=== PATIENT | male | born 1960 | race Caucasian/White ===

== ENCOUNTER 2022-09-18 11:57 | Outpatient (CLI) | payer MEDICARE, SELFPAY ==
[2022-09-21 22:28] LABS: Albumin* 4.8 g/dL (3.3-5.0); Chloride* 104 mmol/L (96-114); Sodium* 141 mmol/L (135-149)
[2022-09-21 22:29] LABS: Potassium* 4.5 mmol/L (3.6-5.1)
[2022-09-21 22:30] LABS: Cholesterol* 209 mg/dL (90-199)
[2022-09-21 22:31] LABS: Alanine Aminotransferase* 24 U/L (4-50); Alkaline Phosphatase* 54 U/L (40-150); Aspartate Amino Transferase* 25 U/L (12-35); Bilirubin Total* 0.9 mg/dL (0.1-1.5); Blood Urea Nitrogen* 12 mg/dL (7-30); Carbon Dioxide* 29 mmol/L (20-32); Creatinine* 0.8 mg/dL (0.5-1.5); Estimated Glomerular Filt Rate 101 ml/min; Glucose* 99 mg/dL (60-115); Total Protein* 7.2 g/dL (6.0-8.3); Triglycerides* 122 mg/dL (40-149)
[2022-09-21 22:32] LABS: Calcium* 9.5 mg/dL (8.4-10.6); HDL Cholesterol* 54 mg/dL (>=40); LDL Cholesterol Calculated 130 mg/dL (<100)
[2022-09-21 23:01] LABS: PSA Screen* 4.45 ng/mL (0.10-4.00)
== END 2022-09-18 11:58 | disposition home or self-care (01) ==
PROVIDERS: PCP Physician Assistant Medical; Visit Provider Physician Assistant Medical
DX: Z00.00 Encounter for general adult medical examination without abnormal findings; R79.89 Other specified abnormal findings of blood chemistry; Z12.5 Encounter for screening for malignant neoplasm of prostate; Z13.6 Encounter for screening for cardiovascular disorders
CPT/HCPCS: 80053; 80061; 84153

== ENCOUNTER 2022-10-02 06:21 | Outpatient (CLI) | payer OTHER, MEDICARE, SELFPAY ==
--- NOTE | 2022-10-02 08:08 | W.ANESCHARGE ---
Anesthesia Charges Start Date/Time Anesthesia Start Date: 10/02/22 Anesthesia Start Time: 07:11 Stop Date/Time Anesthesia Stop Date: 10/02/22 Anesthesia Stop Time: 08:00 Summary Emergency: No
== END 2022-10-02 06:22 | disposition home or self-care (01) ==
PROVIDERS: PCP Physician Assistant Medical; Visit Provider Surgery
DX: Z12.11 Encounter for screening for malignant neoplasm of colon (principal); K63.5 Polyp of colon; K62.1 Rectal polyp; K57.30 Diverticulosis of large intestine without perforation or abscess without bleeding; Z86.010 Personal history of colon polyps
CPT/HCPCS: 00811; 45385; 88305; J2704

== ENCOUNTER 2024-04-28 13:42 | Outpatient (CLI) | payer OTHER, SELFPAY | END 2024-04-28 13:43 | disposition home or self-care (01) | LOC: LKVREF 13:43 | PROVIDERS: PCP Physician Assistant Medical; Visit Provider Physician Assistant Medical | DX: Z00.00 Encounter for general adult medical examination without abnormal findings (principal); F11.90 Opioid use, unspecified, uncomplicated; M79.7 Fibromyalgia; F32.A Depression, unspecified; Z13.6 Encounter for screening for cardiovascular disorders; Z12.5 Encounter for screening for malignant neoplasm of prostate; Z13.1 Encounter for screening for diabetes mellitus; Z13.0 Encounter for screening for diseases of the blood and blood-forming organs and certain disorders involving the immune mechanism | CPT/HCPCS: 80053; 80061; 80306; 84443; G0103 ==

== ENCOUNTER 2024-06-11 14:26 | Outpatient (CLI) | payer OTHER, SELFPAY ==
--- NOTE | 2024-06-11 14:30 | CRLHL7_ITS ---
For Patients: As a result of the 21st Century Cures Act, medical imaging exams and procedure reports are released immediately into your electronic medical record. You may view this report before your referring provider. If you have questions, please contact your health care provider. Indication: Dorsalgia Technique: Noncontrast sagittal and axial T1, T2, and sagittal STIR sequences are provided. Comparison: No prior studies available for comparison at this institution. Findings: Levoscoliosis with apex at L3-4. No fractures. No prevertebral or paraspinal edema. No aggressive osseous lesions. Rudimentary S1-S2 disc. There are 5 lumbar type vertebral bodies. The conus medullaris is normal in signal and location. Sacroiliac joint degenerative changes. T11-12: Moderate interspace narrowing. Central disc protrusion indents the thecal sac and results in mild spinal canal narrowing. No neural foramen stenosis. T12-L1: Circumferential disc bulge results in mild spinal canal narrowing. No neural foramen narrowing. L1-2: 3 mm retrolisthesis. Circumferential disc bulge results in mild spinal canal narrowing. Mild neural foramen narrowing bilaterally. L2-3: 3 mm retrolisthesis. Circumferential disc bulge and superimposed left central disc protrusion results in moderate spinal canal stenosis. Mild neural foramen narrowing bilaterally. L3-4: 3 mm retrolisthesis. Circumferential disc bulge and bilateral facet arthrosis. Moderate spinal canal stenosis. Moderate right neural foraminal narrowing and mild left neural foramen narrowing. L4-5: Circumferential disc bulge, advanced right and moderate left facet arthrosis. Moderate central canal stenosis. Moderate neural foramen narrowing bilaterally. L5-S1: Broad-based left central/foraminal disc herniation with cephalad migration measuring 2.6 cm transversely by 0.7 cm AP. Advanced facet arthrosis with left facet joint effusion and left ligamentum flavum buckling. Severe left subarticular recess stenosis with impingement of the traversing left S1 nerve roots and displacement of traversing left S2 nerve roots. Moderate neural foraminal narrowing bilaterally. Impression: 1. Bone marrow edema in the left L5 and S1 likely due to stress response. Degenerative retrolisthesis at L1-2, L2-3 and L3-4. Levoscoliosis with apex at L3-4. 2. At L5-S1, left-sided disc herniation results in severe subarticular recess stenosis and impingement of traversing left S1 nerve roots. Moderate neural foramen narrowing bilaterally. 3. At L4-5, moderate spinal canal stenosis and bilateral neural foramen narrowing. 4. At L3-4, moderate spinal canal stenosis and moderate right neural foramen narrowing. 5. At L2-3, moderate spinal canal stenosis. Dictated by Henri Verde MD @ 06/12/2024 9:22:54 AM (Electronically Signed)
--- NOTE | 2024-06-11 14:45 | CRLHL7_ITS ---
For Patients: As a result of the Century Cures Act, medical imaging exams and procedure reports are released immediately into your electronic medical record. You may view this report before your referring provider. If you have questions, please contact your health care provider. Indication: Cervicalgia. Degenerative disc disease, arthritis, stenosis? Technique: Noncontrast sagittal T1, T2, STIR and axial T2 spin echo and GRE sequences are provided. Comparison: None Findings: There is straightening of normal cervical lordotic curvature. Retrolisthesis at C4-5 and C5-6. Moderate interspace narrowing at C4-5 through C6-7 with Modic type 2 endplate degenerative changes. Type 1 and type 2 endplate degenerative changes at C4-5. The craniocervical junction is unremarkable. No prevertebral or paraspinal edema. No fractures. Increased stir signal in the right C3 pars interarticularis likely due to stress response. C1-2: No spinal canal stenosis C2-3: No significant spinal canal stenosis or neural foramen narrowing. C3-4: Mild disc bulge and uncovertebral joint hypertrophy. Bilateral facet arthrosis. Moderate neural foraminal narrowing bilaterally. Mild spinal canal narrowing. C4-5: Moderate interspace narrowing, slight retrolisthesis. Posterior disc osteophyte complex, uncovertebral joint hypertrophy and facet arthropathy. Ligamentum flavum buckling. Severe spinal canal stenosis with mild indentation of the ventral and dorsal spinal cord surface. Moderate-severe neural foraminal narrowing bilaterally. C5-6: Moderate interspace narrowing. Posterior disc osteophyte complex and ligamentum flavum buckling results in moderate-severe spinal canal stenosis. Uncovertebral joint hypertrophy and facet arthrosis. Severe bilateral neural foramen stenosis. C6-7: Moderate interspace narrowing. Disc osteophyte complex. [id number] spinal canal stenosis. Uncovertebral joint hypertrophy and facet arthrosis. Severe left and moderate right neural foramen stenosis. No abnormal spinal cord signal. Impression : 1. Multilevel cervical spondylosis. No fractures. Retrolisthesis at C4-5 and C5-6 levels. 2. At C4-5, severe spinal canal stenosis with mild indentation of the spinal cord. Moderate to severe neural foraminal narrowing bilaterally. 3. At C5-6, moderate-severe spinal canal stenosis and severe bilateral foraminal stenosis. 4. At C6-7, mild to moderate spinal canal stenosis, severe left and moderate right neural foramen narrowing. 5. At C3-4, mild spinal canal narrowing and moderate neural foramen stenosis. 6. Modic type 1 degenerative changes at C4-5. Bone marrow edema in the right C3 pars interarticularis likely due to stress response. 7. No abnormal spinal cord signal Dictated by Henri Verde MD @ 06/12/2024 9:03:58 AM (Electronically Signed)
== END 2024-06-11 14:27 | disposition home or self-care (01) ==
LOC: MRI 14:28
PROVIDERS: PCP Physician Assistant Medical; Visit Provider Physician Assistant Medical
DX: M54.9 Dorsalgia, unspecified (principal); M51.27 Other intervertebral disc displacement, lumbosacral region; M48.061 Spinal stenosis, lumbar region without neurogenic claudication; M48.07 Spinal stenosis, lumbosacral region; M54.2 Cervicalgia; M47.892 Other spondylosis, cervical region; M48.02 Spinal stenosis, cervical region; M50.321 Other cervical disc degeneration at C4-C5 level; G25.81 Restless legs syndrome; R20.2 Paresthesia of skin; G89.29 Other chronic pain
CPT/HCPCS: 72141; 72148